=== PATIENT | male | born 1995 | race Caucasian/White ===

== ENCOUNTER 2017-10-20 12:04 | Emergency (ER) | payer OTHER ==
[2017-10-20 12:36] VITALS: BP 127/78
--- NOTE | 2017-10-20 17:16 | ED ---
Throat Pain/Nasal Congestion - HPI Summary HPI Summary: Patient is a 22-year-old male who presents to emergency department for a sore throat and blisters to mouth times several days. Patient states he was seen at the [facility] and started on Zithromax without improvement. Patient states he is having a lot of pain with eating and drinking. Associated symptoms of fever. Denies abdominal pain, vomiting, diarrhea. Patient also had negative strep and mono test at the clinic. He otherwise denies urinary symptoms, penile discharge or concern for STDs. He has no past medical history. Symptoms are mild in severity. Pain is exacerbated by eating and drinking and swallowing. - History of Current Complaint Chief Complaint: EDThroatPain Time Seen by Provider: 10/20/17 13:55 Hx Obtained From: Patient - Allergies/Home Medications Allergies/Adverse Reactions: Allergies Allergy/AdvReac Type Severity Reaction Status Date / Time No Known Allergies Allergy Verified 09/09/17 14:26 PMH/Surg Hx/FS Hx/Imm Hx Previously Healthy: Yes Endocrine/Hematology History: Denies: Hx Diabetes Cardiovascular History: Denies: Hx Hypertension, Hx Pacemaker/ICD Sensory History: Denies: Hx Hearing Aid Neurological History: Reports: Other Neuro Impairments/Disorders - PAIN CLINIC PATIENT Psychiatric History: Denies: Hx Panic Disorder Infectious Disease History: No Infectious Disease History: Denies: Traveled Outside the [place] in Last 30 Days - Social History Occupation: Student Lives: Dormitory/Roommates Alcohol Use: Weekly Alcohol Amount: 8/wk Substance Use Type: Reports: None Smoking Status (MU): Never Smoked Tobacco Have You Smoked in the Last Year: No Review of Systems Positive: Fever Eyes: Negative Positive: Sore Throat Cardiovascular: Negative Negative: Palpitations, Chest Pain Negative: Shortness Of Breath, Cough Negative: Abdominal Pain, Vomiting, Diarrhea, Nausea Genitourinary: Negative Negative: burning, dysuria, discharge Musculoskeletal: Negative Skin: Negative Neurological: Negative All Other Systems Reviewed And Are Negative: Yes Physical Exam Triage Information Reviewed: Yes Vital Signs On Initial Exam: Initial Vitals Temp Pulse Resp BP Pulse Ox 99.4 F 94 18 127/78 99 10/20/17 12:33 10/20/17 12:33 10/20/17 12:33 10/20/17 12:33 10/20/17 12:33 Vital Signs Reviewed: Yes Appearance: Positive: Well-Appearing - Patient sitting on bed in no acute distress. Pleasant. Skin: Positive: Warm, Dry, Other - No rash to palms or shows a feet. Head/Face: Positive: Normal Head/Face Inspection Eyes: Positive: Normal, Conjunctiva Clear. Negative: Conjunctiva Inflammed ENT: Positive: TMs normal, Other - Oropharynx with in injection and vesicular- appearing lesions to posterior pharynx, palette and mildly to mucosa. Neck: Positive: Supple, Other: - Bilateral, small, posterior cervical lymphadenopathy. Respiratory/Lung Sounds: Positive: Clear to Auscultation, Breath Sounds Present Cardiovascular: Positive: Normal Diagnostics - Vital Signs Vital Signs Temp Pulse Resp BP Pulse Ox 10/20/17 12:33 99.4 F 94 18 127/78 99 - Laboratory Lab Statement: Any lab studies that have been ordered have been reviewed, and results considered in the medical decision making process. EENT Course/Dx - Course Course Of Treatment: Patient presenting to emergency department for a sore throat and lesions. He has a low-grade fever in the ER. Oxygen saturation is 99% room air which is normal. He was tested negative for mono and strep this past week. No lesions to palms or soles of feet. Concerned for possible herpetic gingivostomatitis vs herpangitis versus mucositis. Will treat with acylovir and magic mouthwash. Advised f.u with health clinic. Tylenol or Motrin for pain as directed. Return to ER if symptoms change or worsen. Pt. understands and agrees with plan. - Differential Diagnoses Differential Diagnoses: Influenza, Laryngitis, Pharyngitis, Tonsilitis, URI/ Bronchitis - Diagnoses Provider Diagnoses: Herpetic gingivostomatitis Discharge - Sign-Out/Discharge Documenting (check all that apply): Discharge/Admit/Transfer - Discharge Plan Condition: Stable Disposition: HOME Prescriptions: Acyclovir* [Zovirax 400 MG TAB*] 400 mg PO TID 10 Days #30 tab Magic Mouth Was-SUNITA/MAAL/LIDO* 5 ml SWISH SPIT QID #200 ml Patient Education Materials: Oral Herpes Simplex Virus Infections (ED), Oral Mucositis (ED) Referrals: [facility] - Adrián MARTELL [Primary Care Provider] - Additional Instructions: Follow up with the health center Medication as directed Tylenol or Motrin for pain as directed Increase fluids Return to ER if symptoms change or worsen - Billing Disposition and Condition Condition: STABLE Disposition: HOME
== END 2017-10-20 14:57 | disposition home or self-care (01) ==
LOC: ED 12:04
DX: B00.2 Herpesviral gingivostomatitis and pharyngotonsillitis (principal)
CPT/HCPCS: 99282